=== PATIENT | female | born 1940 | race Caucasian/White ===

== ENCOUNTER 2018-04-03 15:42 | Inpatient (IN) | payer OTHER ==
[~2018-04-03] VITALS: Ht 160 cm; Wt 54.4 kg
[2018-04-04] MEDS ORDERED: ENALAPRIL MALEA20 MG PO (15:32)
[2018-04-04] MEDS ORDERED: METOPROLOL SUCC50 MG PO (15:33)
[2018-04-07] MEDS ORDERED: ULTRACET PO (09:52)
[2018-04-07] MEDS ORDERED: CELEBREX200MG PO (09:53)
[2018-04-07] MEDS ORDERED: COLACE100 MG PO (09:53)
== END 2018-04-07 11:29 | disposition home or self-care (01) | DRG 735 ==
LOC: O/R 04-06 07:46 → OB/GYN 04-06 07:46
PROVIDERS: Obstetrics & Gynecology Gynecologic Oncology
PROC: 0UT94ZZ Resection of Uterus, Percutaneous Endoscopic Approach (ICD-10-PCS; 2018-04-06)
PROC: 0UT24ZZ Resection of Bilateral Ovaries, Percutaneous Endoscopic Approach (ICD-10-PCS; 2018-04-06)
PROC: 0UT74ZZ Resection of Bilateral Fallopian Tubes, Percutaneous Endoscopic Approach (ICD-10-PCS; 2018-04-06)
PROC: 07TC4ZZ Resection of Pelvis Lymphatic, Percutaneous Endoscopic Approach (ICD-10-PCS; principal; 2018-04-06 18:45)
DX: C54.1 Malignant neoplasm of endometrium (principal); I10 Essential (primary) hypertension